=== PATIENT | male | born 1985 | race African-American/Black ===

== ENCOUNTER 2018-04-30 03:19 | Emergency (ER) | payer OTHER ==
[~2018-04-30] VITALS: Ht 172.7 cm; Wt 74.8 kg
[~2018-04-30 03:19] MED LIST: VICODIN 5/500 505 MG PO
== END 2018-04-30 04:59 | disposition home or self-care (01) ==
LOC: ED 03:19
DX: S29.012A Strain of muscle and tendon of back wall of thorax, initial encounter (principal); F17.200 Nicotine dependence, unspecified, uncomplicated; V49.59XA Passenger injured in collision with other motor vehicles in traffic accident, initial encounter; Y93.89 Activity, other specified; Y92.413 State road as the place of occurrence of the external cause; Y99.9 Unspecified external cause status